=== PATIENT | male | born 1945 | race African-American/Black ===

== ENCOUNTER 2019-08-23 13:32 | Inpatient (IN) | payer MEDICARE, SELFPAY ==
[2019-08-23] VITALS (8 sets, daily range): BP systolic 105–126; BP diastolic 65–78; PULSE 81–107; RESP 20; TEMP 36.6; O2SAT 94–100
--- NOTE | ~2019-08-23 | XR_ITS ---
MODIFIED ESOPHAGRAM HISTORY: Dysphagia. TECHNIQUE: Modified barium esophagram was performed on 08/26/2019. I administered fluoroscopy and perf ormed the exam with speech pathologist. Patient was seated for lateral fluoroscopic imaging for lashell stion of thin liquids, pudding, solids and quantified amounts, followed by thin liquids in uncontroll ed amounts. This was recorded on tape. A single fluoroscopic spot image was also recorded. The DAP fo r this procedure was 4.119 Gycm2. The amount of fluoroscopy time used during this procedure was 2.8 m inutes. FINDINGS: Oral stage: Premature spill into the pharynx. Pharyngeal stage: There was a residue. No laryngeal penetration or aspiration. Cervical/esophageal stage: Adequate function. IMPRESSION: Oropharyngeal dysphagia without laryngeal penetration or aspiration. Please correlate [facility] speech pathologist findings and specific feeding recommendations. Reviewed, dictated and finalized at location A. IMPRESSION: Oropharyngeal dysphagia without laryngeal penetration or aspiration . Please correlate with speech pathologist findings and specific feeding recom mendations.
--- NOTE | ~2019-08-23 | XR_ITS ---
EXAMINATION: XR abdomen obstructive series DATE: 08/25/2019 05:49 INDICATION: Partial small bowel obstruction versus ileus TECHNIQUE: Frontal supine and upright views of the abdomen were obtained. COMPARISON: None. FINDINGS: Likely ventriculoperitoneal shunt which projects over the right hemithorax extending into the right a bdomen with distal stent coiled in the pelvis. Several surgical clips in the deep pelvis likely relat ed to prior prostatectomy. Additional metallic shrapnel in the right hemipelvis. [id number] amount of gas and stool scattered throughout the colon. There is also a small amoun t of gas scattered throughout normal caliber small bowel. No dilated bowel to suggest obstruction. No free intraperitoneal gas. Visualized lung bases are clear. Heart size is normal. IMPRESSION: 1. No free intraperitoneal gas or dilated gas-filled loops of bowel to suggest obstruction. Reviewed, dictated and finalized at location A.
--- NOTE | ~2019-08-23 | XR_ITS ---
EXAMINATION: XR abdomen obstructive series DATE: 08/24/2019 05:35 INDICATION: Small bowel obstruction versus ileus TECHNIQUE: Frontal supine and upright views of the abdomen were obtained. COMPARISON: 08/23/2019 FINDINGS: There is some gas scattered throughout portions of the colon and several nondilated loops of small christa wel. Likely ventriculoperitoneal shunt with distal tip coiled in the pelvis. These of metallic shrap thuy the right hemipelvis. There is residual excreted contrast in the bladder and along the urethra. P ostoperative change of prior prostatectomy. Moderate degenerative skeletal changes. Lung bases are cl ear. IMPRESSION: 1. No dilated gas-filled loops of bowel to suggest obstruction. Reviewed, dictated and finalized at location A.
--- NOTE | ~2019-08-23 | XR_ITS ---
EXAMINATION: XR chest 1V portable INDICATION: Cough TECHNIQUE: Portable AP chest at 1657 hours COMPARISON: 10/21/2018 FINDINGS: The lungs are free of acute opacities. There is no pleural effusion or pneumothorax. The ca rdiomediastinal silhouette is normal. Ventriculoperitoneal shunt catheter tubing courses over the rig ht hemithorax. IMPRESSION: 1. No acute cardiopulmonary abnormality. Reviewed, dictated and finalized at location A.
--- NOTE | ~2019-08-23 | CT_ITS ---
EXAMINATION: CT brain wo con DATE: 08/23/2019 15:06 INDICATION: Decreased mental status. Normal pressure hydrocephalus. TECHNIQUE: Computed tomography (CT) of the head was performed without intravenous contrast. Sagittal and coronal reconstructions were performed. The mA was adjusted according to patient size. Iterative reconstruction technique was employed. The dose-length product was 605.33 mGy-cm. COMPARISON: head CT dated 07/21/2016 FINDINGS: Right-sided ventricular drain catheter with proximal tip at the anterior horn of the right lateral ve ntricle and extending posteriorly through a right parietal borehole. There are likely symmetric bilat eral subdural fluid collections with slightly greater than CSF attenuation which extend over both the left and right cerebral hemispheres which are new since the prior study and which measure up to 7 mm in maximal thickness on both the left and right. No acute intracranial hemorrhage or acute infarctio n. There is symmetric mild ventriculomegaly consistent with given history of normal pressure hydrocep halus which is decreased since the prior study. Moderate baseline cerebral volume loss with diffuse i ncreased prominence of the sulci. No mass/mass effect. The mastoid air cells and paranasal sinuses ar e clear. The right mastoid is hypopneumatized. Changes of bilateral intraocular lens replacement. IMPRESSION: 1. 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 No evident higher attenuation acute intracranial hemorrhage. 2. Symmetric enlargement of the ventricles consistent with provided history of normal pressure hydroc ephalus. Ventricular drain in the right lateral ventricle appears unchanged although the ventricles a ppear slightly decreased in size since the prior study which is of uncertain significance. Reviewed, dictated and finalized at location A. IMPRESSION: 1. Relatively symmetric small bilateral subdural fluid collections only minimal ly higher in attenuation than CSF consistent with likely chronic subdural hygro mas which are new since the prior study. No evident higher attenuation acute in tracranial hemorrhage. 2. Symmetric enlargement of the ventricles consistent with provided history of normal pressure hydrocephalus. Ventricular drain in the right lateral ventricle appears unchanged although the ventricles appear slightly decreased in size si nce the prior study which is of uncertain significance.
--- NOTE | ~2019-08-23 | CT_ITS ---
EXAMINATION: CT abdomen pelvis w con DATE: 08/23/2019 15:07 INDICATION: Abdominal pain. Nausea and vomiting. TECHNIQUE: Computed tomography (CT) of the abdomen and pelvis was performed with 100 mL Omnipaque 350 intravenous contrast. Automated exposure control and iterative reconstruction technique were employe d. The dose-length product was 905.72 mGy-cm. COMPARISON: CT abdomen and pelvis 03/28/2019, 04/27/2013 FINDINGS: The visualized portions of the lung bases demonstrate motion artifact and mild atelectasis. No pleural effusion. The heart size is normal. There are coronary artery calcifications. No pericard ial effusion. The liver and gallbladder are normal. There is a 7 mm cyst in the spleen. The pancreas and right adrenal gland are normal. There is a chronic 1.8 cm mass in left adrenal gland that demonst rated low-attenuation on a prior CT, consistent with an adenoma. There is cortical thinning of the ki dneys. There are cysts in the kidneys measuring up to 15 mm on the right. The appendix is normal. The re is a ventriculoperitoneal shunt with tip in the pelvis. There are mildly dilated loops of small christa wel in left abdomen with mesenteric edema. There is a small volume of pelvic ascites. There are no pa thologically enlarged lymph nodes. There is bilateral gynecomastia. There is moderate lumbar spondylo sis and mild thoracic spondylosis. IMPRESSION: 1. Mildly dilated small bowel in left abdomen without focal transition point, which may be adynamic i leus or partial small bowel obstruction. 2. Small volume of ascites. Reviewed, dictated and finalized at location E. IMPRESSION: 1. Mildly dilated small bowel in left abdomen without focal transition point, w hich may be adynamic ileus or partial small bowel obstruction. 2. Small volume of ascites.
--- NOTE | 2019-08-23 13:37 | ED.NAVMDI ---
HPI - Nausea/Vomiting/Diarrhea General Chief complaint: Nausea/Vomiting/Diarrhea Stated complaint: n/v Time Seen by Provider: 08/23/19 13:35 Source: patient and family Mode of arrival: ambulatory Limitations: no limitations History of Present Illness HPI Narrative: Patient is a 74-year-old male who presents for evaluation of nausea and vomiting. History is all obtained from the patient's who cares for him. Patient has a history of NPH, meningitis, now with chronic encephalopathy and is nonverbal at baseline. Patient's states that he has had some vomiting today, nonbilious, nonbloody. She reports that he has been acting like he is experiencing some pain, although she is unsure if it is coming from his abdomen or not. No fever. Patient also has had a dry cough. Patient follows at [facility] for his [employer] shunt, he sees Dr. Prajapati at that facility. No diarrhea per patient's . She states that he he seems slightly less active than normal. Related Data Home Medications Medication Instructions Recorded Confirmed Adults Multivitamin 1 tablet PO DAILY 03/28/19 04/07/19 Systane Gel 1 drp OPHTHALMIC (EYE) DAILY 03/28/19 04/07/19 aspirin 325 mg PO HS 03/28/19 04/07/19 ipratropium-albuterol 3 ml INHALATION Q6H PRN 03/28/19 04/07/19 modafinil [Provigil] 100 mg PO QAM 03/28/19 04/07/19 polyethylene glycol 3350 [Miralax] 17 g PO HS 03/29/19 04/07/19 Allergies Allergy/AdvReac Type Severity Reaction Status Date / Time ANMOL Inhibitors Allergy Unknown Unknown Verified 08/23/19 13:46 famotidine Allergy Unknown Unknown Verified 08/23/19 13:46 guaifenesin Allergy Unknown unknown Verified 08/23/19 13:46 pantoprazole Allergy Unknown unknown Verified 08/23/19 13:46 Penicillins Allergy Unknown unknown Verified 08/23/19 13:46 promethazine Allergy Unknown Unknown Verified 08/23/19 13:46 ropinirole Allergy Unknown Unknown Verified 08/23/19 13:46 Review of Systems Review of Systems: Narrative: Per , cONSTITUTIONAL: Denies fever CARDIOVASCULAR: Denies chest pain RESPIRATORY: Denies cough or dyspnea. GASTROINTESTINAL: Denies abdominal pain reports vomiting SKIN: Denies rash MUSCULOSKELETAL: Chronic muscle contracture [facility] Past Medical History Medical History Chronic cough Chronic pain Complication of lumbar puncture Hemorrhoid had a procedure 25 years ago to fix Meningitis NPH (normal pressure hydrocephalus) Primary osteoarthritis of knees, bilateral Prostate cancer Surgical History Surgical History H/O prostatectomy History of prostate surgery 1993 Family History Family History Father Malignant neoplasm of prostate Patient's father is Mother Family history of diabetes mellitus in first degree relative Social History Social History Smoking status: Former smoker Smoking end date: 03/28/00 Alcohol intake: current Substance use: never Additional living arrangements comments: Gender identity (if verbalized by the patient): Male Spiritual care concerns: No Agree to blood products: No Exam Narrative: Exam Narrative: GENERAL: Awake, nonconversant, baseline HEAD: Normocephalic, atraumatic. EYES: PERRLA and EOMI. ENT: Nares clear, no rhinorrhea or epistaxis. Mucous membranes moist. Emesis present on shirt. NECK: Supple. CHEST: No respiratory distress, breathing even and non labored HEART: Regular rate, sinus rhythm ABDOMEN:Mild distension, grimace with palpation, pt moans likely indicative of pain EXTREMITIES: Normal range of motion. No edema. SKIN: Warm, dry, no rash. NEURO: Contractures of upper and lower extremities. Right upper extremity held in flexion. Chronic. Course Vital Signs Vital signs: Vital Signs Temperature 36.6 C
[2019-08-23 13:58] LABS: Basophils Percent Auto 0.2 % (0.2-1.2); Hematocrit 49.1 % (42.0-52.0); Hemoglobin 16.4 g/dL (14.0-18.0); Immature Granulocyte Absolute 0.06 K/mm3 (0.00-0.031); Immature Granulocyte Percent A 0.6 % (0-0.5); Lymphocytes Absolute Auto 0.62 K/mm3 (0.9-3.2); Lymphocytes Percent Auto 5.8 % (18.3-44.2); Mean Corpuscular HGB Conc 33.4 g/dl (32-36); Mean Corpuscular Hemoglobin 32.3 pg (26-34); Mean Corpuscular Volume 96.8 fl (80-100); Mean Platelet Volume 9.8 fl (7.4-10.4); Monocytes Absolute Auto 0.8 K/mm3 (0.1-0.6); Monocytes Percent Auto 7.2 % (2.6-8.5); Neutrophils Absolute Auto 9.2 K/mm3 (1.3-6.7); Neutrophils Percent Auto 86.2 % (45.5-73.1); Platelet Count Result 157 k/mm3 (150-375); Red Blood Count 5.07 M/mm3 (4.6-6.20); Red Cell Distribution Width 13.9 % (11.5-14.5); White Blood Count 10.7 K/mm3 (4.5-10.0)
[2019-08-23 14:00] LABS: Glucose Point of Care 120 (65-105)
[2019-08-23 14:19] LABS: Albumin Level 4.1 g/dL (3.5-5.1); Alkaline Phosphatase 64 U/L (38-126); Aspartate Amino Transferase 25 U/L (17-59); Bilirubin,Total 0.5 mg/dL (0.2-1.3); Blood Urea Nitrogen 18 mg/dL (9-20); Calcium 9.2 mg/dL (8.4-10.2); Carbon Dioxide 32 mmol/L (22-30); Chloride 98 mmol/L (98-107); Estimated Glomerular Filt Rate > 60; Glucose 116 mg/dL (75-110); Lactic Acid Reflex 4.7 mmol/L (0.7-2.1); Lipase 64 U/L (23-300); Potassium 4.6 mmol/L (3.4-5.0); Sodium 141 mmol/L (137-145)
[2019-08-23] MEDS: ONDANSETRON INJ 4 MG/2 ML VIAL IV PUSH (14:19)
[2019-08-23] MEDS: SODIUM CHLORIDE 0.9% IV 1,000 ML 999 ML IV CONT ×2 (14:20→15:27)
[2019-08-23 14:26] LABS: Alanine Aminotransferase 20 U/L (4-50)
[2019-08-23 16:32] LABS: Valproic Acid 71.4 ug/mL (50-120)
--- NOTE | 2019-08-23 16:48 | PC.NURSE ---
ERP ASKING ABOUT URINE SAMPLE AT THIS TIME, I WENT AND ASSESSED PT BRYANT CATHETER, URINARY BAG IS EMPTY DESPITE 2L NS. ERP KIM INFORMED. NO NEW ORDERS. FAMILY ASKING ABOUT PAIN MEDICATION. I HAVE ADMINISTERED 4MG MORPHINE PER ERP ORDER AT THIS TIME.
[2019-08-23] MEDS: MORPHINE SULFATE 4 MG/ML INJ IV PUSH (16:50)
[2019-08-23 16:56] LABS: Reflex Lactic Acid Yes or No Add Lactic
[2019-08-23 17:31] LABS: Lactic Acid 2.4 mmol/L (0.7-2.1)
--- NOTE | 2019-08-23 17:49 | PC.NURSE ---
asked pt for urine sample multiple times the Pt has not gave us a sample yet RN notified.
[2019-08-23] MEDS: SODIUM CHLORIDE 0.9% IV 1,000 ML 150 ML IV CONT (18:00)
[2019-08-23] MEDS: metroNIDAZOLE 500 MG/ISO 100ML 500 MG/100 ML BAG 100 MG IVPB (18:00)
--- NOTE | 2019-08-23 18:21 | PC.NURSE ---
NG ATTEMPTED BY MYSELF AND ANDRE FELDER, UNSUCCESSFUL IN PLACEMENT. ERP BERTELS AWARE OR SITUATION, STATES NOT TO ATTEMPT AGAIN.
--- NOTE | 2019-08-23 21:17 | PM.IMHP ---
H&P: HPI History of Present Illness Chief complaint: Nausea and vomiting Narrative: Date and time of patient contact: 08/24/2019 at 12: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 Source of information is ER records and past medical records. The patient is nonverbal at baseline due to his chronic encephalopathy. That he had nonbilious nonbloody vomiting that started on the . His felt the patient was experiencing some pain. Patient had been afebrile. He has been having a dry cough. His thought that he was less interactive than normal. in the ER the patient was noted to have some emesis and was having difficulty clearing the emesis. He required suctioning. The patient's did not want the patient to be intubated if he was unable to clear his secretions. ER physician was concerned that the patient may have some aspiration pneumonia given his recent emesis the patient was given broad-spectrum antibiotics in the ER. ER staff had tried to place an NG without success. Reportedly the surgeon stated that it was okay to leave the NG tube out and that repeat KUB done in the morning. At the time of my evaluation the patient did grimace when I palpated his abdomen but otherwise demonstrated no evidence of distress. Review of Systems Review of Systems: ROS unobtainable: Yes unobtainable due to medical condition PMFSH Past Medical History Medical History (Updated 08/23/19 @ 21:34 by Rubi Bales DO) Abnormal colonoscopy Sigmoid colitis and internal hemorrhoids on colonoscopy March [address] 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 with flexion contractures, immobility and nonverbal state Meningitis Normal pressure hydrocephalus Parkinsons disease With atypical features Primary osteoarthritis of knees, bilateral Prostate cancer Seizure disorder Vitamin D deficiency Surgical History Surgical History (Updated 08/23/19 @ 21:29 by Rubi Bales DO) History of bilateral cataract extraction 2014 History of hemorrhoidectomy 1977 History of prostatectomy 1992 History of thyroid surgery Resection of a thyroid nodule 2011 Status post ventriculoperitoneal shunt April 2015 Family History Family History (Updated 08/23/19 @ 21:30 by Rubi Bales DO) Father Malignant neoplasm of prostate Mother Diabetes mellitus Sibling Hypertension Cancer Social History Social History (Updated 08/24/19 @ 05:53 by Rubi Bales DO) Social History: Primary care physician: Dr. Homer Dowell Code status: DNI Smoking status: Former smoker Smoking end date: 03/28/00 Alcohol intake: never Substance use: never Living arrangements: with family Additional living arrangements comments: The patient lives in [place] with his who is his primary caregiver. Gender identity (if verbalized by the patient): Male Spiritual care concerns: No Agree to blood products: No Meds Home Medications and Allergies Home Medications Medication Instructions Recorded Confirmed Type levothyroxine 88 mcg tablet 88 mcg PO DAILY #90 tablet 03/11/19 08/23/19 Rx Adults Multivitamin 1 tablet PO DAILY 03/28/19 08/23/19 History Systane Gel 1 drp OPHTHALMIC (EYE) BID 03/28/19 08/23/19 History ipratropium-albuterol 3 ml INHALATION Q6H PRN 03/28/19 08/23/19 History modafinil [Provigil] 100 mg PO QAM 03/28/19 08/23/19 History polyethylene glycol 3350 [Miralax] 17 g PO QPM 03/29/19 08/23/19 History baclofen 20 mg tablet 20 mg PO TID #270 tablet
--- NOTE | 2019-08-23 22:50 | ADMGEN ---
This patient, Lane Helms, was admitted to [facility] Surg Room 315-02. Patient/family oriented to hospital policies and general routines including ID bracelet, bed and alarms, visiting hours, pain management, procedures, bathroom and other care routines, personal items, smoking policy, room service/diet, and visiting hours. Valuables list has been completed. Information on how to activate the Rapid Response Team has been discussed. Patient/Family are encouraged to report perceived risks to care and to ask questions if they do not understand what they are told or what they should do.
[2019-08-24] VITALS (9 sets, daily range): BP systolic 113–130; BP diastolic 56–72; PULSE 73–86; RESP 16–20; TEMP 36.2–37.1; O2SAT 93–98
[2019-08-24] MEDS: SODIUM CHLORIDE 0.9% IV 1,000 ML 125 ML IV CONT ×3 (01:04→18:18)
[2019-08-24 06:12] LABS: Hematocrit 37.9 % (42.0-52.0); Hemoglobin 12.4 g/dL (14.0-18.0); Mean Corpuscular HGB Conc 32.7 g/dl (32-36); Mean Corpuscular Hemoglobin 31.8 pg (26-34); Mean Corpuscular Volume 97.2 fl (80-100); Mean Platelet Volume 9.7 fl (7.4-10.4); Platelet Count Result 133 k/mm3 (150-375); White Blood Count 7.4 K/mm3 (4.5-10.0)
[2019-08-24 06:21] LABS: Lactic Acid 0.7 mmol/L (0.7-2.1)
[2019-08-24 06:39] LABS: Blood Urea Nitrogen 14 mg/dL (9-20); Calcium 7.9 mg/dL (8.4-10.2); Carbon Dioxide 29 mmol/L (22-30); Chloride 106 mmol/L (98-107); Estimated Glomerular Filt Rate > 60; Glucose 93 mg/dL (75-110); Magnesium 2.1 mg/dL (1.6-2.3); Potassium 3.8 mmol/L (3.4-5.0); Sodium 139 mmol/L (137-145)
[2019-08-24] MEDS: ENOXAPARIN 40 MG/0.4 ML SYRINGE SUB-Q (08:52)
--- NOTE | 2019-08-24 12:34 | PM.IMPN ---
Progress Note: A&P Assessment and Plan (1) Partial small bowel obstruction: Code(s): K56.600 - Partial intestinal obstruction, unspecified as to cause Status: Acute Assessment and Plan: CT scan on admission with mildly dilated small bowel in left abdomen without focal transition point, which may be adynamic ileus or partial small bowel obstruction and small volume of ascites. KUB this morning with no dilated loops of bowel. General surgery consulted and appreciate input. Unable to place NG in the emergency room. Will remain NPO for now. Continue IV fluids. Will continue to monitor. (2) Lactic acidosis: Code(s): E87.2 - Acidosis Status: Acute Assessment and Plan: Probably result of dehydration as lactic acidosis has improved with IV fluid rehydration. Received IV vancomycin and metronidazole in the emergency room. IV vancomycin is still in place with blood cultures pending. Anticipate discontinuing vancomycin by tomorrow no change in status. (3) Vomiting: Qualifiers: Nausea presence: with nausea Vomiting Intractability: non-intractable Vomiting type: unspecified Qualified Code(s): R11.2 - Nausea with vomiting, unspecified Code(s): R11.10 - Vomiting, unspecified Status: Acute Assessment and Plan: No further vomiting. Remains NPO. IV Zofran available if needed. Will monitor. (4) Encephalopathy chronic: Code(s): G93.49 - Other encephalopathy Status: Acute Assessment and Plan: Known chronic encephalopathy. Interaction limited as a result. Will continue to monitor. (5) Hypothyroid: Qualifiers: Hypothyroidism type: unspecified Qualified Code(s): E03.9 - Hypothyroidism, unspecified Code(s): E03.9 - Hypothyroidism, unspecified Status: Acute Assessment and Plan: Will give levothyroxine IV while NPO. (6) Parkinsons disease: Code(s): G20 - Parkinson's disease Status: Acute Assessment and Plan: Home carbidopa levodopa on hold. Resume when able. (7) Seizure disorder: Code(s): G40.909 - Epilepsy, unspecified, not intractable, without status epilepticus Status: Acute Assessment and Plan: Oral divalproex on hold. With imaging already showing improvement regarding bowels, will hold off on starting IV but will need to do so if prolonged NPO status. (8) DVT prophylaxis: Code(s): Z29.9 - Encounter for prophylactic measures, unspecified Status: Acute Assessment and Plan: Lovenox. Time Spent With Patient Time with patient: 15 - 25 minutes Subjective Date/time seen: 08/24/19 12:34 Interval history: Date of Service: 08/24/2019. Admitted with partial small bowel obstructions. Patient able to say a few words but generally nonverbal at baseline. Awakens for me. Indicates some abdominal pain. Unable to answer other questions. Review of Systems Review of Systems: Narrative: Limited due to medical/mental condition Constitutional: Constitutional: Denies chills and Denies fever(s) Gastrointestinal: Gastrointestinal: Reports abdominal pain Exam Narrative: Exam Narrative: Easily awakened Const: General: no acute distress HENMT: Mouth: Yes moist mucous membranes Neck: Neck: supple Lymphatic: lymphadenopathy not noted Resp: Auscultation: no rales, no wheezes and diminished lung sounds Cardio: Rate: regular rate Rhythm: regular rhythm GI: Inspection: non-distended GI Palp: Yes Soft to palpation and No Tenderness to palpation present (GI) Auscultation: normal bowel sounds Skin: General skin exam: normal color Neuro: Other: awakens; open eyes; says a few words Extrem: General: pedal edema Psych: Other: not agitated Objective Data Vital Signs Vital Signs: Vital Signs - 24 hr 08/23/19 13:35 08/23/19 15:29 08/23/19 16:00 Temperature 97.9 F Pulse Rate 107 H 92 92 Respiratory Rate 20 20 20 Blood Pressure 126/78 113/68 122/7
[2019-08-24] MEDS: BISACODYL 10 MG SUPPOSITORY RECTAL (13:04)
--- NOTE | 2019-08-24 15:09 | PM.CNGS ---
Assessment and Plan Assessment and plan (1) Partial small bowel obstruction: Code(s): K56.600 - Partial intestinal obstruction, unspecified as to cause Status: Acute Assessment and Plan: CT reviewed. There is evidence of small bowel dilation with no focal transition point, concerning for partial small bowel obstruction versus ileus. Etiology unclear. Due to the patient's neurological condition and being non-verbal, it is difficult to obtain a full history. He does have a small scar on his abdomen suggesting previous abdominal surgery, but unsure what surgery this scar is from. Will try to obtain more detailed history from his . Abdominal x-ray this morning shows no small bowel dilation and the patient has not had recent episodes of vomiting today. His abdominal exam is benign. Will continue with conservative management at this time, including bowel rest and IV fluids, and also give the patient a Dulcolax suppository today. We will also hold off on an NG tube for now, unless he begins to have more vomiting. Will order abdominal films for tomorrow morning, and if this looks good, then we can consider allowing the patient to start clear liquids. Thank you for allowing me to see the patient in consultation and we will continue to follow along with you. (2) Lactic acidosis: Code(s): E87.2 - Acidosis Status: Acute Assessment and Plan: Likely related to his vomiting with possible aspiration. Repeat lactic now 0.7 and patient afebrile with normal WBC. Currently on broad-spectrum IV antibiotics. Management per Hospitalist. (3) Vomiting: Qualifiers: Nausea presence: with nausea Vomiting Intractability: non-intractable Vomiting type: unspecified Qualified Code(s): R11.2 - Nausea with vomiting, unspecified Code(s): R11.10 - Vomiting, unspecified Status: Acute (4) Encephalopathy chronic: Code(s): G93.49 - Other encephalopathy Status: Acute Additional Plan Discussed the patient's case and formulated the plan of care with Dr. Guzman. History of Present Illness Consult details Consult date: 08/24/19 Reason for consult: other (Partial small bowel obstruction versus ileus) Requesting physician: Jojo Dyson MD Narrative: This is a 74 year old male who is nonverbal due to a history of meningitis causing chronic encephalopathy and normal pressure hydrocephalus status post [employer] shunt in 2016. Because of this, his history is obtained by the electronic medical record. The patient lives at home with his , who is also his caregiver. He was reportedly brought to the emergency department due to nausea and vomiting that started yesterday. In the ER, the patient apparently had vomiting with difficulty clearing the emesis and concern for aspiration, and he required suctioning. The ER physician started the patient on broad-spectrum IV antibiotics due to the concern of aspiration pneumonia. CT scan of the abdomen and pelvis showed mildly dilated small bowel in left abdomen without focal transition point, which may be adynamic ileus or partial small bowel obstruction. Also a small volume of ascites. Labs revealed an elevated lactic acid of 4.7, which is now down to 0.7, and a mildly elevated white blood cell count of 10,700, which is now down to 7,000. Other labs were unremarkable. Urinalysis negative for UTI. Chest x-ray obtained and showed no acute cardiopulmonary abnormalities. The patient was admitted to the Hospitalist service with partial small bowel obstruction versus ileus and elevated lactate. Our service was consulted from the ER physician for the possible partial small bowel obstruction. The patient is now being seen on the medical floor. The nursing staff was apparently unable to place an NG tube initially, and the patient has not had any reported episodes of vomiting since. He has been made NPO and an abdominal x-ray was performed this morning that showed normal bowel gas pattern w
[2019-08-25] VITALS (10 sets, daily range): BP systolic 143–150; BP diastolic 71–96; PULSE 85–100; RESP 18–20; TEMP 36.4–37.4; O2SAT 96–100
[2019-08-25] MEDS: SODIUM CHLORIDE 0.9% IV 1,000 ML 125 ML IV CONT ×3 (04:01→22:30)
[2019-08-25] MEDS: LEVOTHYROXINE SODIUM INJ 100 MCG/5 ML VIAL 44 MCG IV PUSH (05:52)
[2019-08-25 06:18] LABS: Immature Platelet Fraction Pct 0.9 % (0.9-11.2); Mean Corpuscular HGB Conc 34.1 g/dl (32-36); Mean Corpuscular Hemoglobin 32.6 pg (26-34); Mean Corpuscular Volume 95.6 fl (80-100); Mean Platelet Volume 9.3 fl (7.4-10.4); Platelet Count Result 142 k/mm3 (150-375); Red Blood Count 4.29 M/mm3 (4.6-6.20); Red Cell Distribution Width 13.3 % (11.5-14.5); White Blood Count 6.4 K/mm3 (4.5-10.0)
[2019-08-25 06:33] LABS: Blood Urea Nitrogen 9 mg/dL (9-20); Calcium 8.1 mg/dL (8.4-10.2); Carbon Dioxide 26 mmol/L (22-30); Chloride 104 mmol/L (98-107); Estimated Glomerular Filt Rate > 60; Glucose 91 mg/dL (75-110); Potassium 3.5 mmol/L (3.4-5.0); Sodium 138 mmol/L (137-145)
[2019-08-25] MEDS: ENOXAPARIN 40 MG/0.4 ML SYRINGE SUB-Q (09:37)
--- NOTE | 2019-08-25 09:39 | PM.PNGS ---
Progress Note: A&P Assessment and Plan (1) Partial small bowel obstruction: Code(s): K56.600 - Partial intestinal obstruction, unspecified as to cause Status: Acute Assessment and Plan: Partial SBO versus ileus on CT scan. I spoke with the patient's today. She believes that the only abdominal incisions he would have had from previous surgeries was from his [employer] shunt. She states his prostate surgery was 30 years ago and it sounds like he had a TURP. She does report that the patient is able to swallow liquids and eat well without using any thickening. She uses precautions to sit him upright, no straws, and slow intake to avoid aspiration. Patient clinically improving. KUB this morning showed normal bowel gas pattern with no dilated small bowel loops. Abdominal soft, non-distended, and appears to be non-tender. He had a documented bowel movement yesterday evening. Will allow him to try clear liquids today and start him on Miralax daily. It appears there was no urinalysis performed in the ER, so I will get a urinalysis today to rule out UTI for possible etiology of an ileus. Patient's had concerns about his urine smelling foul recently. (2) Lactic acidosis: Code(s): E87.2 - Acidosis Status: Acute Assessment and Plan: Management per Hospitalist. IV vancomycin still in place and awaiting blood cultures - NGTD. (3) Vomiting: Qualifiers: Nausea presence: with nausea Vomiting Intractability: non-intractable Vomiting type: unspecified Qualified Code(s): R11.2 - Nausea with vomiting, unspecified Code(s): R11.10 - Vomiting, unspecified Status: Acute (4) Encephalopathy chronic: Code(s): G93.49 - Other encephalopathy Status: Acute Additional Plan Discussed the patient's case and plan of care with Dr. Guzman. Subjective Subjective Date/Time Seen: 08/25/19 09:39 Interval history: Nonverbal. Review of Systems Review of Systems: ROS unobtainable: Yes unobtainable due to mental status Exam Const: General: comfortable and no acute distress Orientation/consciousness: Other orientation findings (ROB, nonverbal but alert) GI: Inspection: normal to inspection, non-distended and scar (small periumbilical scar just inferior to umbilicus) GI Palp: Yes Soft to palpation, No Guarding due to palpation present (GI) and Yes Other GI palpation findings present (No grimacing or signs of tenderness on palpation) Auscultation: normal bowel sounds Skin: General skin exam: normal color Neuro: Gait exam (Neuro): Unable to assess gait Extrem: General: normal to inspection and no edema Psych: Other: ROB due to neurological condition. Objective Data Vital Signs Vital Signs: Vital Signs - 24 hr 08/24/19 12:00 08/24/19 14:00 08/24/19 16:00 Temperature 37.1 C Pulse Rate 73 80 81 Respiratory Rate 20 Blood Pressure 130/56 L Pulse Oximetry 98 08/24/19 22:00 08/25/19 00:00 08/25/19 04:00 Temperature 36.4 C L Pulse Rate 84 85 99 Respiratory Rate 18 Blood Pressure 126/72 Pulse Oximetry 97 08/25/19 06:00 Temperature 36.4 C Pulse Rate 97 Respiratory Rate 20 Blood Pressure 150/89 H Pulse Oximetry 96 Intake/Output Intake/Output: Intake & Output 08/22/19 08/23/19 08/24/19 08/25/19 23:59 23:59 23:59 23:59 Intake Total 2150 2162 1250 Output Total 800 800 Balance 2150 1362 450 Meds/Results Medications: Active Medications Generic Name Dose Route Start Last Admin Trade Name Freq PRN Reason Stop Dose Admin Albuterol 2.5 mg 08/24/19 06:09 Albuterol Sulf Neb 2.5mg/0.5ml INHALATION Q6H PRN SHORTNESS OF BREATH Artificial Tears 1 drop 08/24/19 09:00 08/24/19 17:19 Artificial Tears EACH EYE 1 drop BID THA Administration Enoxaparin Sodium 40 mg 08/24/19 09:00 08/24/19 08:52 Lovenox SUB-Q 40 mg DAILY THA Administration Sodium Chloride 1,000 mls @ 125 mls/hr 08/23/19 17:45 08/25/19 04:01
[2019-08-25 12:11] LABS: Add Urine Microscopic? YES; Appearance Urine Clear (Clear); Bacteria Urine Trace /hpf; Bilirubin Urine Negative (Negative); Blood Urine 2+ (Negative); Color Urine Colorless (Yellow); Glucose Urine UA Negative (Negative); Ketones Urine Trace mg/dL (Negative); Leukocyte Esterase Ur Negative LEU/UL (Negative); Mucus Urine Rare /lpf; Nitrate Urine Negative (Negative); Protein Urine Negative (Negative); RBC Urine 0-2 /hpf (0-2); Specific Grav Ur 1.008 (1.001-1.035); Urobilinogen Urine Negative mg/dL (<2.0); WBC Urine 0-3 /hpf
[2019-08-25] MEDS: polyethylene glycoL 3350 17 GM POWD.PACK PO (12:22)
--- NOTE | 2019-08-25 14:34 | PM.IMPN ---
Progress Note: A&P Assessment and Plan (1) Partial small bowel obstruction: Code(s): K56.600 - Partial intestinal obstruction, unspecified as to cause Status: Acute Assessment and Plan: General surgery consulted and appreciate input. Unable to place NG tube in emergency room and initially NPO. CT scan on admission with mildly dilated small bowel in left abdomen without focal transition point, which may be adynamic ileus or partial small bowel obstruction and small volume of ascites. KUB on 08/24/2019 with no dilated loops of bowel. No free intraperitoneal gas or dilated gas-filled loops of bowel to suggest obstruction. Has now been started on clear liquids. IV fluids remain in place. Will continue to monitor. (2) Lactic acidosis: Code(s): E87.2 - Acidosis Status: Acute Assessment and Plan: Probably result of dehydration as lactic acidosis improved with IV fluid rehydration. Received IV vancomycin and metronidazole in the emergency room. IV vancomycin continued with blood cultures in process. Blood cultures are now negative times greater than 48 hours. Urinalysis obtained today and not suspicious. Will discontinue IV vancomycin. Will continue to monitor clinically. (3) Vomiting: Qualifiers: Nausea presence: with nausea Vomiting Intractability: non-intractable Vomiting type: unspecified Qualified Code(s): R11.2 - Nausea with vomiting, unspecified Code(s): R11.10 - Vomiting, unspecified Status: Acute Assessment and Plan: No further vomiting. Now on clear liquids. IV Zofran remains available if needed. Per surgery request, will try to obtain MBS but may be difficult based on baseline mental status. Will continue to monitor. (4) Encephalopathy chronic: Code(s): G93.49 - Other encephalopathy Status: Acute Assessment and Plan: Known chronic encephalopathy. Interaction limited as a result. Will continue to monitor. (5) Hypothyroid: Qualifiers: Hypothyroidism type: unspecified Qualified Code(s): E03.9 - Hypothyroidism, unspecified Code(s): E03.9 - Hypothyroidism, unspecified Status: Acute Assessment and Plan: Will continue IV levothyroxine with plan to transition to oral formulation once sure patient is tolerating oral intake. (6) Parkinsons disease: Code(s): G20 - Parkinson's disease Status: Acute Assessment and Plan: Home carbidopa levodopa on hold. Hopefully will resume tomorrow is tolerating oral intake and no problem seen on MBS. (7) Seizure disorder: Code(s): G40.909 - Epilepsy, unspecified, not intractable, without status epilepticus Status: Acute Assessment and Plan: Oral divalproex remains on hold. As long as continues to do well with oral intake today, may be able to resume home medication tomorrow. (8) DVT prophylaxis: Code(s): Z29.9 - Encounter for prophylactic measures, unspecified Status: Acute Assessment and Plan: Lovenox. Time Spent With Patient Time with patient: 15 - 25 minutes Subjective Date/time seen: 08/25/19 14:34 Interval history: Date of Service: 08/25/2019. Admitted with partial small bowel obstruction. ROS limited by patient's baseline status. Patient is able to tell me he feels some abdominal pain. Unable to answer other questions. Review of Systems Review of Systems: Narrative: Limited due to mental status. Constitutional: Constitutional: Denies chills and Denies fever(s) Gastrointestinal: Gastrointestinal: Reports abdominal pain Exam Narrative: Exam Narrative: Easily awakened Const: General: no acute distress HENMT: Mouth: Yes moist mucous membranes Neck: Neck: supple Lymphatic: lymphadenopathy not noted Resp: Auscultation: no rales, no wheezes and diminished lung sounds Cardio: Rate: regular rate Rhythm: regular rhythm GI: Inspection: non-distended GI Palp: Yes Soft to palpati
[2019-08-26] VITALS (9 sets, daily range): BP systolic 154–187; BP diastolic 88–94; PULSE 96–103; RESP 16–20; TEMP 36.7; O2SAT 98–99; BMI 26.9
[2019-08-26 01:29] LABS: Vancomycin Trough 6.1 ug/mL (10.0-20.0)
[2019-08-26] MEDS: LEVOTHYROXINE SODIUM INJ 100 MCG/5 ML VIAL 44 MCG IV PUSH (06:10)
[2019-08-26] MEDS: SODIUM CHLORIDE 0.9% IV 1,000 ML 125 ML IV CONT ×2 (06:30→18:20)
[2019-08-26 06:32] LABS: Hematocrit 39.5 % (42.0-52.0); Hemoglobin 13.5 g/dL (14.0-18.0); Immature Platelet Fraction Pct 1.2 % (0.9-11.2); Mean Corpuscular HGB Conc 34.2 g/dl (32-36); Mean Corpuscular Hemoglobin 32.2 pg (26-34); Mean Corpuscular Volume 94.3 fl (80-100); Mean Platelet Volume 9.8 fl (7.4-10.4); Platelet Count Result 146 k/mm3 (150-375); Red Blood Count 4.19 M/mm3 (4.6-6.20); Red Cell Distribution Width 13.2 % (11.5-14.5); White Blood Count 5.9 K/mm3 (4.5-10.0)
[2019-08-26 06:48] LABS: Blood Urea Nitrogen 6 mg/dL (9-20); Calcium 8.2 mg/dL (8.4-10.2); Carbon Dioxide 29 mmol/L (22-30); Chloride 107 mmol/L (98-107); Estimated CRCL calculation 95 ml/min; Estimated Glomerular Filt Rate > 60; Glucose 104 mg/dL (75-110); Sodium 139 mmol/L (137-145)
[2019-08-26] MEDS: polyethylene glycoL 3350 17 GM POWD.PACK PO (08:35)
[2019-08-26] MEDS: ENOXAPARIN 40 MG/0.4 ML SYRINGE SUB-Q (08:35)
--- NOTE | 2019-08-26 12:29 | PM.PNGS ---
Progress Note: A&P Assessment and Plan (1) Partial small bowel obstruction: Code(s): K56.600 - Partial intestinal obstruction, unspecified as to cause Status: Acute Assessment and Plan: Partial SBO versus ileus on CT scan. Seems to be resolving. Abdominal exam benign today and patient had BM yesterday again. No further episodes of vomiting. UA negative for UTI. Modified Barium swallow test being performed today. Depending on the speech therapist recommendations, the patient could be advanced to a full liquid diet today and see how he does. Continue Miralax daily. (2) Lactic acidosis: Code(s): E87.2 - Acidosis Status: Acute Assessment and Plan: Resolved. Management per Hospitalist. No longer on IV abx. Blood cx NGTD. (3) Vomiting: Qualifiers: Nausea presence: with nausea Vomiting Intractability: non-intractable Vomiting type: unspecified Qualified Code(s): R11.2 - Nausea with vomiting, unspecified Code(s): R11.10 - Vomiting, unspecified Status: Acute Assessment and Plan: Resolved. (4) Encephalopathy chronic: Code(s): G93.49 - Other encephalopathy Status: Acute Additional Plan Discussed the patient's case and plan of care with Dr. Guzman. Subjective Subjective Date/Time Seen: 08/26/19 12:29 Patient reports: bowel movement (x 1 yesterday per EMR) Interval history: Patient non-verbal. Review of Systems Review of Systems: ROS unobtainable: Yes unobtainable due to mental status Exam Const: General: comfortable, no acute distress and alert Other: Nonverbal GI: Inspection: normal to inspection and non-distended GI Palp: Yes Soft to palpation, No Guarding due to palpation present (GI), No Rigid due to palpation and Yes Other GI palpation findings present (No signs of tenderness on palpation) Auscultation: normal bowel sounds Skin: General skin exam: normal color Psych: Other: ROB due to neurological condition. Objective Data Vital Signs Vital Signs: Vital Signs - 24 hr 08/25/19 14:00 08/25/19 16:00 08/25/19 16:48 Temperature 36.7 C Pulse Rate 93 97 97 Respiratory Rate 18 Blood Pressure 143/96 H Pulse Oximetry 100 08/25/19 20:00 08/25/19 22:00 05/22/20 00:00 Temperature 37.4 C Pulse Rate 100 97 103 H Respiratory Rate 20 Blood Pressure 143/71 H Pulse Oximetry 97 08/26/19 04:00 08/26/19 06:00 Temperature 36.7 C Pulse Rate 100 99 Respiratory Rate 20 Blood Pressure 155/88 H Pulse Oximetry 99 Intake/Output Intake/Output: Intake & Output 08/23/19 08/24/19 08/25/19 08/26/19 23:59 23:59 23:59 23:59 Intake Total 2150 2162 3610 1390 Output Total 800 3650 1400 Balance 2150 1362 -40 -10 Meds/Results Medications: Active Medications Generic Name Dose Route Start Last Admin Trade Name Freq PRN Reason Stop Dose Admin Albuterol 2.5 mg 08/24/19 06:09 Albuterol Sulf Neb 2.5mg/0.5ml INHALATION Q6H PRN SHORTNESS OF BREATH Artificial Tears 1 drop 08/24/19 09:00 08/26/19 08:35 Artificial Tears EACH EYE 1 drop BID THA Administration Enoxaparin Sodium 40 mg 08/24/19 09:00 08/26/19 08:35 Lovenox SUB-Q 40 mg DAILY THA Administration Sodium Chloride 1,000 mls @ 125 mls/hr 08/23/19 17:45 08/26/19 06:30 Normal Saline Iv IV CONT 125 mls/hr .Q8H THA Administration Ipratropium [place] 0.5 mg 08/24/19 06:09 Atrovent Neb INHALATION Q6H PRN SHORTNESS OF BREATH Levothyroxine Sodium 44 mcg 08/25/19 06:30 08/26/19 06:10 Synthroid Inj IV PUSH 44 mcg DAILY@0630 THA Administration Morphine Sulfate 2 mg 08/23/19 17:43 Morphine Sulfate Inj IV PUSH Q2H PRN Pain Rated 7-10 Ondansetron HCl 4 mg 08/23/19 17:43 Zofran Inj IV PUSH Q4H PRN Nausea Polyethylene Glycol 17 gm 08/25/19 09:55 08/26/19 08:35 Miralax PO 17 gm QAM THA Administration Radiology Results: ITS Impressions Head
--- NOTE | 2019-08-26 12:51 | PM.IMPN ---
Progress Note: A&P Assessment and Plan (1) Partial small bowel obstruction: Code(s): K56.600 - Partial intestinal obstruction, unspecified as to cause Status: Acute Assessment and Plan: General surgery consulted and appreciate input. Unable to place NG tube in emergency room and initially NPO. CT scan on admission with mildly dilated small bowel in left abdomen without focal transition point, which may be adynamic ileus or partial small bowel obstruction and small volume of ascites. KUB on 08/24/2019 with no dilated loops of bowel. Imaging on 08/25/2019 with no free intraperitoneal gas or dilated gas-filled loops of bowel to suggest obstruction. Having bowel movements. Already on clear liquids. Discussed with general surgery today. As patient has past MBS as noted below, will follow MBS recommendations with placing patient on puree diet with thin liquids. Will continue to monitor. Hopefully home soon. Plan is to return home with at discharge. Patient normally wheelchair-bound. (2) Vomiting: Qualifiers: Nausea presence: with nausea Vomiting Intractability: non-intractable Vomiting type: unspecified Qualified Code(s): R11.2 - Nausea with vomiting, unspecified Code(s): R11.10 - Vomiting, unspecified Status: Acute Assessment and Plan: No further vomiting. MBS done today with recommendation for pureed diet with thin liquids but no spoons. Diet adjusted. Will decrease IV fluids. If oral intake good in next 24 hours, should be able to discontinue IV fluids. Will monitor. (3) Lactic acidosis: Code(s): E87.2 - Acidosis Status: Acute Assessment and Plan: Probably result of dehydration as lactic acidosis improved with IV fluid rehydration. Received IV vancomycin and metronidazole in the emergency room. IV vancomycin discontinued on 08/25/2019 with cultures negative. Continue to monitor. (4) Encephalopathy chronic: Code(s): G93.49 - Other encephalopathy Status: Acute Assessment and Plan: Known chronic encephalopathy. Interaction limited as a result but slightly more responsive today. Will continue to monitor. (5) Hypothyroid: Qualifiers: Hypothyroidism type: unspecified Qualified Code(s): E03.9 - Hypothyroidism, unspecified Code(s): E03.9 - Hypothyroidism, unspecified Status: Acute Assessment and Plan: With advancement of diet, will transition back to oral levothyroxine in a.m.. (6) Parkinsons disease: Code(s): G20 - Parkinson's disease Status: Acute Assessment and Plan: Home carbidopa levodopa has been on hold but will resume with passing MBS. (7) Seizure disorder: Code(s): G40.909 - Epilepsy, unspecified, not intractable, without status epilepticus Status: Acute Assessment and Plan: Oral divalproex has been on hold but will resume with patient passing MBS. No seizure activity. Will monitor. (8) DVT prophylaxis: Code(s): Z29.9 - Encounter for prophylactic measures, unspecified Status: Acute Assessment and Plan: Lovenox. Time Spent With Patient Time with patient: 15 - 25 minutes Subjective Date/time seen: 08/26/19 12:51 Interval history: Date of Service: 08/26/2019. Admitted with partial small bowel obstruction. ROS limited by patient's baseline status. Returned from MBS. No abdominal pain today. No chest pain or shortness of breath. Review of Systems Review of Systems: Narrative: Limited due to patient condition. Constitutional: Constitutional: Denies chills and Denies fever(s) Cardiovascular: Cardiovascular: Denies chest pain Respiratory: Respiratory: Denies dyspnea Gastrointestinal: Gastrointestinal: Reports abdominal pain Exam Narrative: Exam Narrative: Easily awakened Const: General: no acute distress HENMT: Mouth: Yes moist mucous membranes Neck: Neck: supple Lymphatic: lymphadenopathy not noted Resp
[2019-08-26] MEDS: TELMISARTAN 40 MG TABLET 80 MG PO (14:41)
[2019-08-26] MEDS: BACLOFEN 10 MG TABLET 20 MG PO ×2 (14:41→18:21)
[2019-08-26] MEDS: CARBIDOPA/LEVODOPA 25/100 MG TABLET 1 TABLET PO ×2 (14:42→18:22)
[2019-08-26] MEDS: DIVALPROEX SODIUM SPRINKLE 125 MG CAP.DR 375 MG PO ×2 (14:42→18:22)
[2019-08-26] MEDS: SERTRALINE HCL 50 MG TABLET PO (14:42)
[2019-08-26] MEDS: AMLODIPINE BESYLATE 5 MG TABLET PO (14:43)
[2019-08-26] MEDS: modafiniL 100 MG TABLET PO (15:47)
[2019-08-27] VITALS: PULSE 95
[2019-08-27 04:00] VITALS: PULSE 84
[2019-08-27] MEDS: LEVOTHYROXINE SODIUM 88 MCG TABLET PO (05:35)
[2019-08-27] MEDS: SODIUM CHLORIDE 0.9% IV 1,000 ML 75 ML IV CONT (05:40)
[2019-08-27 06:00] VITALS: BP 148/75; PULSE 84; RESP 20; TEMP 36.6; O2SAT 98
[2019-08-27 07:19] LABS: Blood Urea Nitrogen 4 mg/dL (9-20); Calcium 8.3 mg/dL (8.4-10.2); Carbon Dioxide 28 mmol/L (22-30); Chloride 108 mmol/L (98-107); Estimated CRCL calculation 95 ml/min; Estimated Glomerular Filt Rate > 60; Glucose 91 mg/dL (75-110); Magnesium 1.9 mg/dL (1.6-2.3); Potassium 3.3 mmol/L (3.4-5.0); Sodium 140 mmol/L (137-145)
[2019-08-27 08:00] VITALS: PULSE 84
[2019-08-27] MEDS: DIVALPROEX SODIUM SPRINKLE 125 MG CAP.DR 375 MG PO ×2 (09:30→14:05)
[2019-08-27] MEDS: ENOXAPARIN 40 MG/0.4 ML SYRINGE SUB-Q (09:30)
[2019-08-27] MEDS: CARBIDOPA/LEVODOPA 25/100 MG TABLET 1 TABLET PO ×2 (09:30→14:05)
[2019-08-27] MEDS: BACLOFEN 10 MG TABLET 20 MG PO ×2 (09:30→14:05)
[2019-08-27] MEDS: ASPIRIN 81 MG CHEWABLE TABLET PO (09:31)
[2019-08-27] MEDS: modafiniL 100 MG TABLET PO (09:32)
[2019-08-27] MEDS: LORATADINE 10 MG TABLET PO (09:32)
[2019-08-27] MEDS: AMLODIPINE BESYLATE 5 MG TABLET PO (09:32)
[2019-08-27] MEDS: polyethylene glycoL 3350 17 GM POWD.PACK PO (09:32)
[2019-08-27] MEDS: FUROSEMIDE 20 MG TABLET PO (09:32)
[2019-08-27] MEDS: SERTRALINE HCL 50 MG TABLET PO (09:32)
[2019-08-27] MEDS: MULTIVITAMINS /C LUTEIN (CENTRUM SILVER) TABLET *BKC 1 TAB PO (09:32)
[2019-08-27] MEDS: TELMISARTAN 40 MG TABLET 80 MG PO (09:33)
[2019-08-27] MEDS: POTASSIUM CHLORIDE 20 MEQ TABLET 40 MEQ PO (11:08)
--- NOTE | 2019-08-27 11:17 | PM.IMPN ---
Progress Note: A&P Assessment and Plan (1) Partial small bowel obstruction: Code(s): K56.600 - Partial intestinal obstruction, unspecified as to cause Status: Acute Assessment and Plan: General surgery consulted and appreciate input. Unable to place NG tube in emergency room and initially NPO. CT scan on admission with mildly dilated small bowel in left abdomen without focal transition point, which may be adynamic ileus or partial small bowel obstruction and small volume of ascites. KUB on 08/24/2019 with no dilated loops of bowel. Imaging on 08/25/2019 with no free intraperitoneal gas or dilated gas-filled loops of bowel to suggest obstruction. Having bowel movements again today. As patient has past MBS as noted below, will follow MBS recommendations with placing patient on puree diet with thin liquids. On Pureed diet/regular diet; spoon feed thin liquids. Will continue to monitor. Hopefully home soon. Plan is to return home with at discharge. Patient normally wheelchair-bound. (2) Vomiting: Qualifiers: Nausea presence: with nausea Vomiting Intractability: non-intractable Vomiting type: unspecified Qualified Code(s): R11.2 - Nausea with vomiting, unspecified Code(s): R11.10 - Vomiting, unspecified Status: Acute Assessment and Plan: No further vomiting. MBS done during stay with recommendation for pureed diet with thin liquids but no spoons. Diet adjusted. Will d/c IV fluids today. Will monitor. (3) Lactic acidosis: Code(s): E87.2 - Acidosis Status: Acute Assessment and Plan: Probably result of dehydration as lactic acidosis improved with IV fluid rehydration. Received IV vancomycin and metronidazole in the emergency room. IV vancomycin discontinued on 08/25/2019 with cultures negative. Continue to monitor. (4) Encephalopathy chronic: Code(s): G93.49 - Other encephalopathy Status: Acute Assessment and Plan: Known chronic encephalopathy. Interaction limited as a result but slightly more responsive again today. Will continue to monitor. (5) Hypothyroid: Qualifiers: Hypothyroidism type: unspecified Qualified Code(s): E03.9 - Hypothyroidism, unspecified Code(s): E03.9 - Hypothyroidism, unspecified Status: Acute Assessment and Plan: With advancement of diet, will continue oral levothyroxine in a.m.. (6) Parkinsons disease: Code(s): G20 - Parkinson's disease Status: Acute Assessment and Plan: Home carbidopa levodopa had been on hold but has since been resumed with passing MBS. (7) Seizure disorder: Code(s): G40.909 - Epilepsy, unspecified, not intractable, without status epilepticus Status: Acute Assessment and Plan: Oral divalproex had been on hold but has since been resumed with patient passing MBS. No seizure activity. Will monitor. (8) DVT prophylaxis: Code(s): Z29.9 - Encounter for prophylactic measures, unspecified Status: Acute Assessment and Plan: Lovenox. Subjective Date/time seen: 08/27/19 11:17 Interval history: Patient is a 74 yo M here for partial small bowel obstruction. ROS limited by patient's baseline status. No abdominal pain today. No chest pain or shortness of breath. Per nursing, he is more alert/arousable today compared to previous days Review of Systems Review of Systems: ROS unobtainable: Yes unobtainable due to medical condition Exam Narrative: Exam Narrative: Patient lying in semi-quinones's at time of visit; sleeping, but easily awakened Const: General: comfortable and no acute distress HENMT: Mouth: Yes moist mucous membranes Eyes: General: appearance normal, both eyes and all related structures Neck: Neck: trachea midline and supple Resp: Effort & Inspection: normal respiratory effort Auscultation: no rales, no wheezes and diminished lung sounds Cardio: Rate: regular rate Rhythm: regu
--- NOTE | 2019-08-27 11:27 | PM.DS ---
DS: Admitting Diagnosis Admitting Diagnosis Admitting Diagnosis: Partial intestinal obstruction, unspecified as to cause DS: Discharge Diagnosis Discharge Diagnosis (1) Partial small bowel obstruction: Code(s): K56.600 - Partial intestinal obstruction, unspecified as to cause Status: Resolved Assessment and Plan: General surgery consulted and appreciate input. Unable to place NG tube in emergency room and initially NPO. CT scan on admission with mildly dilated small bowel in left abdomen without focal transition point, which may be adynamic ileus or partial small bowel obstruction and small volume of ascites. KUB on 08/24/2019 with no dilated loops of bowel. Imaging on 08/25/2019 with no free intraperitoneal gas or dilated gas-filled loops of bowel to suggest obstruction. Having bowel movements again today. As patient has past MBS as noted below, will follow MBS recommendations with placing patient on puree diet with thin liquids. On Pureed diet/regular diet; spoon feed thin liquids. Will continue to monitor. Hopefully home soon if okay with General Surgery. Plan is to return home with at discharge. Patient normally wheelchair-bound. (2) Vomiting: Qualifiers: Nausea presence: with nausea Vomiting Intractability: non-intractable Vomiting type: unspecified Qualified Code(s): R11.2 - Nausea with vomiting, unspecified Code(s): R11.10 - Vomiting, unspecified Status: Acute Assessment and Plan: No further vomiting. MBS done during stay with recommendation for pureed diet with thin liquids but no spoons. Diet adjusted. Will d/c IV fluids today. Will monitor. (3) Lactic acidosis: Code(s): E87.2 - Acidosis Status: Acute Assessment and Plan: Probably result of dehydration as lactic acidosis improved with IV fluid rehydration. Received IV vancomycin and metronidazole in the emergency room. IV vancomycin discontinued on 08/25/2019 with cultures negative. Continue to monitor. (4) Encephalopathy chronic: Code(s): G93.49 - Other encephalopathy Status: Acute Assessment and Plan: Known chronic encephalopathy. Interaction limited as a result but slightly more responsive again today. Will continue to monitor. (5) Hypothyroid: Qualifiers: Hypothyroidism type: unspecified Qualified Code(s): E03.9 - Hypothyroidism, unspecified Code(s): E03.9 - Hypothyroidism, unspecified Status: Acute Assessment and Plan: With advancement of diet, will continue oral levothyroxine in a.m.. (6) Parkinsons disease: Code(s): G20 - Parkinson's disease Status: Acute Assessment and Plan: Home carbidopa levodopa had been on hold but has since been resumed with passing MBS. (7) Seizure disorder: Code(s): G40.909 - Epilepsy, unspecified, not intractable, without status epilepticus Status: Acute Assessment and Plan: Oral divalproex had been on hold but has since been resumed with patient passing MBS. No seizure activity. Will monitor. (8) DVT prophylaxis: Code(s): Z29.9 - Encounter for prophylactic measures, unspecified Status: Acute Assessment and Plan: Lovenox. 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 While in the ER, patient was noted to have some emesis and aspiration was a concern. He was also found to have imaging results suggestive of partial SBO; ER tried to place an NG tube without success; this was left out per General Surgery instructions. Patient was admitted under the setting of partial SBO. Please see H&P for further details
[2019-08-27 12:00] VITALS: PULSE 83
--- NOTE | 2019-08-27 12:04 | PM.PNGS ---
Progress Note: A&P Assessment and Plan (1) Partial small bowel obstruction: Code(s): K56.600 - Partial intestinal obstruction, unspecified as to cause Status: Resolved Assessment and Plan: No persistent evidence of obstruction. Patient tolerating a pureed diet. Okay to discharge today. Subjective Subjective Date/Time Seen: 08/27/19 12:04 Bowels moving, no complaints of abdominal pain. Exam GI: Inspection: non-distended GI Palp: Yes Soft to palpation and No Tenderness to palpation present (GI) Percussion: Yes normal to percussion Auscultation: normal bowel sounds Objective Data Vital Signs Vital Signs: Vital Signs - 24 hr 08/26/19 14:00 08/26/19 16:00 08/26/19 20:00 Temperature 36.7 C Pulse Rate 100 98 101 H Respiratory Rate 16 Blood Pressure 187/91 H Pulse Oximetry 98 08/26/19 21:24 08/27/19 00:00 08/27/19 04:00 Temperature 36.7 C Pulse Rate 96 95 84 Respiratory Rate 20 Blood Pressure 154/94 H Pulse Oximetry 98 08/27/19 06:00 Temperature 36.6 C Pulse Rate 84 Respiratory Rate 20 Blood Pressure 148/75 H Pulse Oximetry 98 Intake/Output Intake/Output: Intake & Output 08/24/19 08/25/19 08/26/19 08/27/19 23:59 23:59 23:59 23:59 Intake Total 2162 3610 3110 1085 Output Total 800 3650 3500 2150 Balance 1362 -40 -390 -1065 Meds/Results Medications: Active Medications Generic Name Dose Route Start Last Admin Trade Name Freq PRN Reason Stop Dose Admin Albuterol 2.5 mg 08/24/19 06:09 Albuterol Sulf Neb 2.5mg/0.5ml INHALATION Q6H PRN SHORTNESS OF BREATH Amlodipine Besylate 5 mg 08/26/19 12:55 08/27/19 09:32 Norvasc PO 5 mg DAILY THA Administration Artificial Tears 1 drop 08/24/19 09:00 08/27/19 09:30 Artificial Tears EACH EYE 1 drop BID THA Administration Aspirin 81 mg 08/27/19 09:00 08/27/19 09:31 Aspirin Chewable PO 81 mg DAILY THA Administration Baclofen 20 mg 08/26/19 13:00 08/27/19 09:30 Lioresal Po PO 09/25/19 13:01 20 mg TID [facility] Administration Carbidopa/Levodopa 1 tablet 08/26/19 13:00 08/27/19 09:30 Sinemet 25/100 Mg PO 1 tablet TID [facility] Administration Divalproex Sodium 375 mg 08/26/19 13:00 08/27/19 09:30 Depakote Sprinkle PO 375 mg TID [facility] Administration Enoxaparin Sodium 40 mg 08/24/19 09:00 08/27/19 09:30 Lovenox SUB-Q 40 mg DAILY [facility] Administration Furosemide 20 mg 08/27/19 09:00 08/27/19 09:32 Lasix Tablet PO 20 mg QAM [facility] Administration Glycopyrrolate 1 mg 08/26/19 12:52 Robinul Tab PO BID PRN secretions Ipratropium [place] 0.5 mg 08/24/19 06:09 Atrovent Neb INHALATION Q6H PRN SHORTNESS OF BREATH Levothyroxine Sodium 88 mcg 08/27/19 06:30 08/27/19 05:35 Synthroid PO 88 mcg DAILY@0630 [facility] Administration Loratadine 10 mg 08/27/19 09:00 08/27/19 09:32 Claritin PO 09/26/19 09:01 10 mg DAILY [facility] Administration Modafinil 100 mg 08/26/19 12:55 08/27/19 09:32 Provigil PO 09/25/19 12:56 100 mg QAM [facility] Administration Morphine Sulfate 2 mg 08/23/19 17:43 Morphine Sulfate Inj IV PUSH Q2H PRN Pain Rated 7-10 Multivitamins/Minerals 1 tab 08/27/19 09:00 08/27/19 09:32 Centrum Silver PO 1 tab DAILY [facility] Administration Ondansetron HCl 4 mg 08/23/19 17:43 Zofran Inj IV PUSH Q4H PRN Nausea Polyethylene Glycol 17 gm 08/25/19 09:55 08/27/19 09:32 Miralax PO 17 gm QAM [facility] Administration Sertraline HCl 50 mg 08/26/19 12:55 08/27/19 09:32 Zoloft PO 50 mg DAILY [facility] Administration Telmisartan 80 mg 08/26/19 12:55 08/27/19 09:33 Micardis PO 80 mg DAILY [facility]A Administration Tramadol HCl 100 mg 08/26/19 12:54 Ultram PO Q6H PRN moderate pain Radiology Results: ITS Impressions Head CT 08/23/19 15:07 IMPRESSION: 1. Relatively symmetric small bilateral subdural fluid collections on
[2019-08-27 14:36] LABS: H pylori Ag Stool Not Detected (Not Detected)
[2019-08-27 15:15] VITALS: BP 147/81; PULSE 73; RESP 16; TEMP 36.8; O2SAT 99
== END 2019-08-27 16:15 | disposition home or self-care (01) | DRG 389 ==
LOC: ANHED 17:56 → ANH3MEDSUR 18:18
PROVIDERS: Internal Medicine; Nurse Practitioner Family; Surgery; Admitting Provider Hospitalist; Emergency Provider Emergency Medicine; PCP Internal Medicine; Visit Provider Hospitalist
DX: K56.609 Unspecified intestinal obstruction, unspecified as to partial versus complete obstruction (principal); G93.49 Other encephalopathy; G91.2 (Idiopathic) normal pressure hydrocephalus; E87.2 Acidosis; G20 Parkinson's disease; F02.80 Dementia in other diseases classified elsewhere, unspecified severity, without behavioral disturbance, psychotic disturbance, mood disturbance, and anxiety; G40.909 Epilepsy, unspecified, not intractable, without status epilepticus; E03.9 Hypothyroidism, unspecified
CPT/HCPCS: 36415; 70450; 71045; 74019; 74177; 80048; 80053; 80164; 80202; 81001; 83605; 83690; 83735; 85025; 85027; 85055; 87040; 87338; 92611; 96361; 96365; 96375; 99285; A9270; J0696; J1650; J2270; J2405; J3370; J3480; J7030; Q9967

== ENCOUNTER 2020-08-28 16:11 | Outpatient (CLI) | payer MEDICARE, SELFPAY ==
--- NOTE | ~2020-08-28 | US_ITS ---
EXAMINATION:US venous doppler LE RT INDICATION:Right leg swelling and pain TECHNIQUE: Multiple grayscale, color flow and Doppler images of the right lower extremity deep venous systems were obtained and reviewed. COMPARISON:No prior studies for comparison. FINDINGS: The common femoral, superficial femoral and popliteal veins demonstrate normal respiratory variation, augmentation and compressibility. Color flow is also seen within the posterior tibial, pe roneal, greater saphenous and profunda veins. Evaluation of the calf veins limited by soft tissue swe lling. IMPRESSION: 1: No lower extremity deep venous thrombosis. Reviewed, dictated and finalized at location [facility].
== END 2020-08-28 16:12 | disposition home or self-care (01) ==
PROVIDERS: PCP Internal Medicine; Visit Provider Internal Medicine
DX: R60.9 Edema, unspecified (principal)
CPT/HCPCS: 93971

== ENCOUNTER 2021-05-28 13:52 | Outpatient (CLI) | payer MEDICARE, SELFPAY ==
--- NOTE | ~2021-05-28 | US_ITS ---
US arterial ankle brachial ind INDICATION: Peripheral vascular disease TECHNIQUE: Segmental pressures and plethysmographic and Doppler waveforms of the brachial and lower e xtremity arteries were obtained. COMPARISON: None. FINDINGS: Right and left brachial artery pressures of 135 mm Hg and 136 mm Hg, respectively, are concordant (no rmal difference <= 30 mmHg). The right ankle-brachial index (MO) is 1.15 (normal >= 0.9-1.0). The right great toe-brachial index (TBI) is 0.75 (normal >= 0.60). The left MO is 1.23. The left TBI is 1.26. IMPRESSION: 1. Normal ankle-brachial indices. Reviewed, dictated and finalized at [facility]
== END 2021-05-28 13:53 | disposition home or self-care (01) ==
PROVIDERS: PCP Internal Medicine; Visit Provider Internal Medicine
DX: I73.9 Peripheral vascular disease, unspecified (principal)
CPT/HCPCS: 93922

== ENCOUNTER 2022-02-07 13:11 | Inpatient (IN) | payer MEDICARE, SELFPAY ==
[2022-02-07] VITALS (23 sets, daily range): BP systolic 142–192; BP diastolic 72–94; PULSE 82–96; RESP 11–20; TEMP 36.4–36.9; O2SAT 98–100
--- NOTE | ~2022-02-07 | CT_ITS ---
EXAMINATION: CT abdomen pelvis w con DATE: 02/07/2022 16:45 INDICATION: Mucous and blood in the stool TECHNIQUE: Computed tomography (CT) of the abdomen and pelvis was performed with 100 CC Omnipaque 350 intravenous contrast. Automated exposure control and iterative reconstruction technique were employe d. Exam dose: 1216.60 mGy-cm total exam DLP. COMPARISON: 08/23/2019 CT abdomen FINDINGS: There is mild discoid atelectasis or scarring in the dependent lower lobes. Borderline heart size. No pericardial or pleural effusion. Diffuse hepatic steatosis. Several very small hepatic hypoattenuating lesions are likely small cysts or hamartomas. The gallbladder is unremarkable. No bile duct or pancreatic duct dilatation. No pancre atic mass lesion or calcification. Septated approximately 2 cm cystic lesion of the spleen, likely benign. No splenomegaly. Normal morphology of the right adrenal gland. 1.5 x 1.5 cm mass of the left adrenal gland. There is no known malignancy this is most likely an adenoma. Right renal cysts, measuring up to 1.7 cm. Stable approximately 11 x 17 mm hypoenhancing lesion of the posterior mid left kidney, stable since and therefore likely benign or indolent. 5 mm upper pole left renal cyst. No urinary tract calculus or hydroureteronephrosis. The urinary bladder is unremarkable. Right-sided shunt catheter extends into the pelvic area. There is mild free fluid in the pelvis. There is atherosclerotic calcification but normal caliber of the abdominal aorta and iliac and femora l arteries. Status post prostatectomy. There are some nonspecific fluid-containing small bowel segments with air-fluid levels, measuring up to approximately 3 cm maximal diameter in the left lower quadrant with mild adjacent mesenteric fat s oft tissue infiltration. Normal appendix. There is a prominent amount of fecal material in the colon. No bowel obstruction, bowel wall thickeni ng, pneumatosis or intraperitoneal free air. Small fat-containing umbilical hernia. No suspicious osteolytic or osteoblastic lesions. Moderately prominent degenerative disc disease at L3-4 and L5-S1. IMPRESSION: Air-fluid levels and relative mild fluid distention of small bowel in the left lower victorino drant with adjacent mesenteric fat soft tissue infiltration. Consider partial small bowel obstruction , enteritis, mild adynamic ileus. Hepatic steatosis Small probable hepatic cysts or hamartomas Probable benign 2 cm septated cystic splenic lesion 1.5 cm left adrenal mass, stable since 08/23/2019, statistically most likely an adrenal adenoma Status post prostatectomy Ventriculoperitoneal shunt with mild ascites Reviewed, dictated and finalized at [facility]. Reviewed, dictated and finalized at location [facility]. IMPRESSION: Air-fluid levels and relative mild fluid distention of small bowel in the left lower quadrant with adjacent mesenteric fat soft tissue infiltrati on. Consider partial small bowel obstruction, enteritis, mild adynamic ileus. Hepatic steatosis Small probable hepatic cysts or hamartomas Probable benign 2 cm septated cystic splenic lesion 1.5 cm left adrenal mass, stable since 08/23/2019, statistically most likely an adrenal adenoma Status post prostatectomy Ventriculoperitoneal shunt with mild ascites
--- NOTE | 2022-02-07 13:42 | ED.GENADULT ---
HPI - General Adult General Chief complaint: GI Bleed Stated complaint: blood from rectum Time Seen by Provider: 02/07/22 13:32 History of Present Illness HPI narrative: This is a 76-year-old male with a history of meningitis who is nonverbal at baseline presenting with 1 bloody bowel movement. The patient is taken care of by his . She notes that he had a bowel movement that was blood and mucus. She also notes that he is not eating or taking his medications like he normally does. The patient does not interact with the world around him. He cannot provide me any information. Related Data Home Medications Medication Instructions Recorded Confirmed artificial tears(hypromellose) 0.3 1 drp ophthalmic (eye) BID 03/28/19 11/06/21 % eye gel (Systane Gel) modafinil 100 mg tablet (Provigil) 100 mg PO QAM 03/28/19 11/06/21 multivit with minerals-iron 18 1 tablet PO DAILY 03/28/19 11/06/21 mg-folic ac 400 mcg-vit K 25 mcg tablet (Adults Multivitamin) polyethylene glycol 3350 17 17 g PO QPM 03/29/19 11/06/21 gram/dose oral powder (Miralax) aspirin 81 mg chewable tablet 81 mg PO DAILY 08/23/19 11/06/21 cetirizine 10 mg tablet (Zyrtec) 10 mg PO DAILY 08/23/19 11/06/21 sertraline 50 mg tablet (Zoloft) 50 mg PO DAILY 08/23/19 11/06/21 Allergies Allergy/AdvReac Type Severity Reaction Status Date / Time ANMOL Inhibitors Allergy Unknown Confusion Verified 02/07/22 13:12 famotidine Allergy Unknown Confusion Verified 02/07/22 13:12 guaifenesin Allergy Unknown confusing Verified 02/07/22 13:12 pantoprazole Allergy Unknown Confusion Verified 02/07/22 13:12 Penicillins Allergy Unknown Confusion Verified 02/07/22 13:12 promethazine Allergy Unknown Confusion Verified 02/07/22 13:12 ropinirole Allergy Unknown Confusion Verified 02/07/22 13:12 Review of Systems Review of Systems: unable to obtain as the patient cannot speak PMFSH Past Medical History Medical History Abnormal colonoscopy Sigmoid colitis and internal hemorrhoids on colonoscopy March [address] 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 with flexion contractures, immobility and nonverbal state Meningitis Muscle spasticity Normal pressure hydrocephalus NPH (normal pressure hydrocephalus) Parkinsons disease With atypical features Primary osteoarthritis of both knees Primary osteoarthritis of knees, bilateral Prostate cancer Seizure disorder Vitamin D deficiency Surgical History Surgical History History of bilateral cataract extraction 2014 History of hemorrhoidectomy 1977 History of prostatectomy 1992 History of thyroid surgery Resection of a thyroid nodule 2011 Status post ventriculoperitoneal shunt April 2015 Family History Family History Father Malignant neoplasm of prostate Mother Diabetes mellitus Sibling Hypertension Cancer Social History Social History Social History: Primary care physician: Dr. Homer Dowell Code status: DNI Smoking status: Never smoker Smoking end date: 03/28/00 Alcohol intake: never Alcohol use details: occasional Substance use: never Additional living arrangements comments: The patient lives in [place] with his who is his primary caregiver. Gender identity (if verbalized by the patient): Male Spiritual care concerns: No Agree to blood products: No Exam Narrative: APPEARANCE: No apparent distress. patient is sitting in bed not responsive. Head is turned to the right with rightward gaze deviati
[2022-02-07 15:22] LABS: Glucose Point of Care 91 mg/dl (65-105)
[2022-02-07 15:40] LABS: Basophils Percent Auto 0.3 % (0.2-1.2); Eosinophils Absolute Auto 0.1 K/mm3 (0-0.3); Eosinophils Percent Auto 0.9 % (0-4.4); Hematocrit 47.9 % (42.0-52.0); Hemoglobin 15.7 g/dL (14.0-18.0); Immature Granulocyte Absolute 0.04 K/mm3 (0.00-0.031); Immature Granulocyte Percent A 0.5 % (0-0.5); Lymphocytes Absolute Auto 1.68 K/mm3 (0.9-3.2); Lymphocytes Percent Auto 22.4 % (18.3-44.2); Mean Corpuscular HGB Conc 32.8 g/dl (32-36); Mean Corpuscular Volume 94.5 fl (80-100); Mean Platelet Volume 9.8 fl (7.4-10.4); Monocytes Absolute Auto 0.7 K/mm3 (0.1-0.6); Monocytes Percent Auto 9.9 % (2.6-8.5); Platelet Count Result 199 k/mm3 (150-375); Red Blood Count 5.07 M/mm3 (4.6-6.20); Red Cell Distribution Width 14.1 % (11.5-14.5); White Blood Count 7.5 K/mm3 (4.5-10.0)
[2022-02-07 15:53] LABS: Prothrombin Time 13.2 Seconds (11.1-14.7)
[2022-02-07 15:54] LABS: Partial Thromboplastin Time 37.7 SECONDS (22.3-36.8)
[2022-02-07 15:57] LABS: Alanine Aminotransferase 19 U/L (6-50); Albumin Level 4.3 g/dL (3.5-5.1); Alkaline Phosphatase 70 U/L (38-126); Anion Gap 13 mmol/L (8-16); Aspartate Amino Transferase 30 U/L (17-59); Bilirubin,Total 0.8 mg/dL (0.2-1.3); Blood Urea Nitrogen 15 mg/dL (9-20); Carbon Dioxide 28 mmol/L (22-30); Chloride 102 mmol/L (98-107); Estimated CRCL calculation 92 ml/min; Estimated Glomerular Filt Rate > 60; Glucose 99 mg/dL (65-110); Potassium 4.2 mmol/L (3.4-5.0); Sodium 143 mmol/L (137-145)
[2022-02-07 18:33] LABS: Appearance Urine Slightly Cloudy (Clear); Bilirubin Urine Negative (Negative); Blood Urine 1+ (Negative); Color Urine Yellow (Yellow); Glucose Urine UA Negative (Negative); Ketones Urine Negative (Negative); Leukocyte Esterase Ur 1+ LEU/UL (Negative); Nitrate Urine Negative (Negative); Protein Urine Negative (Negative); Urobilinogen Urine 0.2 mg/dL (<2.0); pH Urine 5.5 (5.0-9.0)
[2022-02-07 18:35] LABS: Bacteria Urine Trace /hpf; WBC Urine 16-20 /hpf
[2022-02-07 18:36] LABS: Add Urine Microscopic? YES
[2022-02-07] MEDS: LACTATED RINGERS 1,000 ML 125 ML IV CONT (19:30)
[2022-02-07 20:14] LABS: SARS-CoV-2 RNA PCR Negative
--- NOTE | 2022-02-07 20:30 | PM.IMHP ---
H&P: HPI History of Present Illness Date/Time: 02/07/22 20:30 Chief Complaint: blood per rectum Narrative: this is a 76-year-old male with past medical history significant for persistent a vegetative state he has a ventricular peritoneal shunt, Parkinson's disease, his taking care at home by his who noticed a bloody bowel movement patient is unable to give any history and is brought for further evaluation management and treatment. A CT of abdomen and pelvis was reported as: IMPRESSION:? Air-fluid levels and relative mild fluid distention of small bowel in the left lower quadrant with adjacent mesenteric fat soft tissue infiltration. Consider partial small bowel obstruction, enteritis, mild adynamic ileus. Hepatic steatosis Small probable hepatic cysts or hamartomas Probable benign 2 cm septated cystic splenic lesion 1.5 cm left adrenal mass, stable since 08/23/2019, statistically most likely an adrenal adenoma Status post prostatectomy Ventriculoperitoneal shunt with mild ascites Review of Systems Review of Systems: ROS unobtainable: Yes unobtainable due to medical condition ( persistent vegetative stage) [facility] Past Medical History Medical History (Updated 02/08/22 @ 03:26 by Ubaldo García MD) Abnormal colonoscopy Sigmoid colitis and internal hemorrhoids on colonoscopy March [address] 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 with flexion contractures, immobility and nonverbal state Meningitis Muscle spasticity Normal pressure hydrocephalus NPH (normal pressure hydrocephalus) Parkinsons disease With atypical features Primary osteoarthritis of both knees Primary osteoarthritis of knees, bilateral Prostate cancer Seizure disorder Vitamin D deficiency Surgical History Surgical History History of bilateral cataract extraction 2014 History of hemorrhoidectomy 1977 History of prostatectomy 1992 History of thyroid surgery Resection of a thyroid nodule 2011 Status post ventriculoperitoneal shunt April 2015 Family History Family History Father Malignant neoplasm of prostate Mother Diabetes mellitus Sibling Hypertension Cancer Social History Social History Social History: Primary care physician: Dr. Homer Dowell Code status: DNI Smoking packs per day: 0.25 Smoking cigarettes per day: 5.0 Years smoked: 20 Smoking pack-years: 5.00 Smoking status: Former smoker Tobacco type: cigarettes Smoking end date: 03/28/00 Alcohol intake: never Alcohol use details: occasional Substance use: never Additional living arrangements comments: The patient lives in [place] with his who is his primary caregiver. Gender identity (if verbalized by the patient): Male Spiritual care concerns: No Agree to blood products: No Meds Home Medications and Allergies Home Medications Medication Instructions Recorded Confirmed Type artificial tears(hypromellose) 0.3 1 drp ophthalmic (eye) BID 03/28/19 02/07/22 History % eye gel (Systane Gel) modafinil 100 mg tablet (Provigil) 100 mg PO QAM 03/28/19 02/07/22 History multivit with minerals-iron 18 1 tablet PO DAILY 03/28/19 02/07/22 History mg-folic ac 400 mcg-vit K 25 mcg tablet (Adults Multivitamin) polyethylene glycol 3350 17 17 g PO QPM 03/29/19 02/07/22 History gram/dose oral powder (Miralax) aspirin 81 mg chewable tablet 81 mg PO DAILY 08/23/19 02/07/22 History cetirizine 10 mg tablet (Zyrtec) 10 mg PO DAILY 08/23/19 02/07/22 History sertraline 50 mg tablet (Zoloft) 50 mg PO DAILY 0
--- NOTE | 2022-02-07 22:28 | ADMGEN ---
This patient, Lane Helms, was admitted to [facility] Surg Room 302-01. Patient/family oriented to hospital policies and general routines including ID bracelet, bed and alarms, visiting hours, pain management, procedures, bathroom and other care routines, personal items, smoking policy, room service/diet, and visiting hours. Information on how to activate the Rapid Response Team has been discussed. Patient/Family are encouraged to report perceived risks to care and to ask questions if they do not understand what they are told or what they should do.
[2022-02-08 06:00] VITALS: BP 177/93; PULSE 107; RESP 18; TEMP 36.4; O2SAT 96
[2022-02-08] MEDS: LACTATED RINGERS 1,000 ML 125 ML IV CONT (06:35)
--- NOTE | 2022-02-08 10:02 | WPDGICN ---
Assessment and Plan Assessment and plan (1) Rectal bleeding: Code(s): K62.5 - Hemorrhage of anus and rectum Status: Acute Assessment and Plan: Rectal bleeding if appears to have occurred on 1 bowel movement described as blood in the mucus but not in the stool. No additional bleeding noted since hospitalization. Because of the prompt resolution of rectal bleeding I suspect this is hemorrhoidal in nature. Patient does have a history of nonspecific colitis 2 years ago presumably from an infectious etiology. I would recommend conservative management with stool softeners and laxatives at this point. No evidence of bowel obstruction at this point. (2) Abnormal CT scan: Code(s): R93.89 - Abnormal findings on diagnostic imaging of other specified body structures Status: Acute Assessment and Plan: CT scan raised the question of air-fluid levels. Patient has no clinical signs of obstruction nor from ileus. Bowel sounds are present and active. Patient continues to have bowel movements described as normal by the nursing staff. Recommend stool softeners and laxatives per possible tendency towards constipation with his bedridden state. (3) Acute UTI: Code(s): N39.0 - Urinary tract infection, site not specified Status: Acute Assessment and Plan: UTI identified by urinalysis. Treatment per primary care service. (4) Parkinsons disease: Code(s): G20 - Parkinson's disease Status: Acute (5) Encephalopathy chronic: Code(s): G93.49 - Other encephalopathy Status: Acute GI Consult Note Consult date/time: 02/08/22 10:02 Reason for consult: Question about partial small-bowel obstruction HPI: Lane Helms is a 76 year old male I am asked to see at the request of the hospitalist service. Patient in a persistent vegetative state. He is nonverbal bed ridden cared for at home by his family. Patient noticed a small amount of bright red blood last evening prompting him to come to the hospital for admission. In the ER a CT scan suggested air-fluid levels. Nursing staff reports the patient has continued to have bowel movements in the bowel movements while hospitalized revealed no evidence of blood. Patient does have a past medical history of Parkinson's disease. He has a ventricular peritoneal shunt. He is unable to give any additional history. Patient underwent a flex sig 2 years ago that revealed a small amount of sigmoid colitis at that time attributed an infection. no evidence of inflammation by CT scanning on this admission. Review of Systems Review of Systems: ROS unobtainable: Yes unobtainable due to medical condition PMFSH Past Medical History Medical History (Updated 02/08/22 @ 10:05 by Fritz Marvin MD) Abnormal colonoscopy Sigmoid colitis and internal hemorrhoids on colonoscopy March [address] 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 with flexion contractures, immobility and nonverbal state Meningitis Muscle spasticity Normal pressure hydrocephalus NPH (normal pressure hydrocephalus) Parkinsons disease With atypical features Primary osteoarthritis of both knees Primary osteoarthritis of knees, bilateral Prostate cancer Seizure disorder Vitamin D deficiency Surgical History Surgical History History of bilateral cataract extraction 2014 History of hemorrhoidectomy 1978 History of prostatectomy 1992 History of thyroid surgery Resection of a thyroid nodule 2011 Status post ventriculoperitoneal shunt April 2015 Family History Family History Father Emmanuel
--- NOTE | 2022-02-08 10:07 | PC.NURSE ---
Pt's , Lillian, called to inform me that she had forgotten to mention that pt cannot swallow whole pills. She stated that she crushes pt's meds and feeds them to him in applesauce and he is able to swallow them that way.
[2022-02-08] MEDS: polyethylene glycoL 3350 17 GM POWD.PACK PO (12:03)
[2022-02-08 14:00] VITALS: BP 174/92; PULSE 101; RESP 16; TEMP 36.3; O2SAT 98
[2022-02-08 14:47] LABS: Hematocrit 46.9 % (42.0-52.0); Hemoglobin 15.4 g/dL (14.0-18.0); Mean Corpuscular HGB Conc 32.8 g/dl (32-36); Mean Corpuscular Hemoglobin 30.7 pg (26-34); Mean Corpuscular Volume 93.6 fl (80-100); Mean Platelet Volume 9.1 fl (7.4-10.4); Platelet Count Result 192 k/mm3 (150-375); Red Blood Count 5.01 M/mm3 (4.6-6.20); Red Cell Distribution Width 13.7 % (11.5-14.5); White Blood Count 7.8 K/mm3 (4.5-10.0)
--- NOTE | 2022-02-08 15:00 | PM.DS ---
DS: Admitting Diagnosis Discharge Date 02/08/22 Admitting Diagnosis (1) Partial bowel obstruction: ?Code(s): K56.600 - Partial intestinal obstruction, unspecified as to cause ?Status:?Acute ? ? (2) Prostate cancer: ?Code(s): C61 - Malignant neoplasm of prostate ?Status:?Acute (3) Seizure disorder: ?Code(s): G40.909 - Epilepsy, unspecified, not intractable, without status epilepticus ?Status:?Acute ? ? (4) Parkinsons disease: ?Code(s): G20 - Parkinson's disease ?Status:?Acute ? (5) Encephalopathy chronic: ?Code(s): G93.49 - Other encephalopathy ?Status:?Acute ? DS: Discharge Diagnosis Discharge Diagnosis (1) Rectal bleeding: Code(s): K62.5 - Hemorrhage of anus and rectum Status: Acute (2) Infection of ventriculoperitoneal shunt: Code(s): T85.730A - Infection and inflammatory reaction due to ventricular intracranial (communicating) shunt, initial encounter Status: Acute (3) Acute UTI: Code(s): N39.0 - Urinary tract infection, site not specified Status: Acute (4) Therapeutic drug monitoring: Code(s): Z51.81 - Encounter for therapeutic drug level monitoring Status: Acute (5) Neurogenic bladder: Code(s): N31.9 - Neuromuscular dysfunction of bladder, unspecified Status: Acute (6) Benign essential hypertension: Code(s): I10 - Essential (primary) hypertension Status: Acute (7) Parkinsons disease: Code(s): G20 - Parkinson's disease Status: Acute (8) Seizure disorder: Code(s): G40.909 - Epilepsy, unspecified, not intractable, without status epilepticus Status: Acute (9) Hyperlipidemia: Code(s): E78.5 - Hyperlipidemia, unspecified Status: Acute DS: Summary Hospital Course Reason for hospitalization: ?blood per rectum Narrative: ?this is a 76-year-old male with past medical history significant for persistent a vegetative state? he has a ventricular peritoneal shunt,? Parkinson's disease, his taking care at home by his who noticed a bloody bowel movement patient is unable to give any history and is brought for further evaluation management and treatment.? A CT of abdomen and pelvis was? reported as: IMPRESSION:? Air-fluid levels and relative mild fluid distention of small bowel in the left lower quadrant with adjacent mesenteric fat soft tissue infiltration. Consider partial small bowel obstruction, enteritis, mild adynamic ileus. Hepatic steatosis Small probable hepatic cysts or hamartomas Probable benign 2 cm septated cystic splenic lesion 1.5 cm left adrenal mass, stable since 08/23/2019, statistically most likely an adrenal adenoma Status post prostatectomy Ventriculoperitoneal shunt with mild ascites Hospital Course: patient admitted with complaint of bright red blood per rectum as explained by spouse at time of admission. This patient is well-known to Dr. Marvin and he has been consulted during this hospitalization. His hemoglobin has remained stable during this hospitalization without any further bleeding noted by hospital staff, and he is diagnosed with hemorrhoidal bleeding and constipation. He is discharged back to care of spouse on MiraLax bowel regimen. partial small-bowel obstruction has been ruled out as patient is having bowel movement. Status at Discharge Functional status at discharge: bed bound Time Spent with Patient Time attestation: Total time spent providing and/or coordinating discharge services: Exam Narrative: Exam Const opens eyes to voice cooperative HEENT: EOMI, poor dental hygiene Lungs: symmetric chest rise no distress Extrem: decreased range of motion Psych: unable to evaluate DS: Data Data Completed and Pending Labs on day of discharge: Labs from last 24 hours 02/08/22 02/07/22 02/07/22 14:40 19:33 18:24 WBC 7.8 RBC 5.01 Hgb 15.4 Hct 46.9 MCV 93.6 MCH 30.7 MCHC
[2022-02-08 16:54] VITALS: O2SAT 98
== END 2022-02-08 17:58 | disposition home or self-care (01) | DRG 394 ==
LOC: ANHED 19:05 → ANH3MEDSUR 20:35
PROVIDERS: Admitting Provider Hospitalist; Emergency Provider Emergency Medicine; PCP Internal Medicine; Visit Provider Hospitalist
DX: K64.9 Unspecified hemorrhoids (principal); G91.2 (Idiopathic) normal pressure hydrocephalus; G93.49 Other encephalopathy; N39.0 Urinary tract infection, site not specified; B96.20 Unspecified Escherichia coli [E. coli] as the cause of diseases classified elsewhere; B96.1 Klebsiella pneumoniae [K. pneumoniae] as the cause of diseases classified elsewhere; K59.00 Constipation, unspecified; C61 Malignant neoplasm of prostate; G40.909 Epilepsy, unspecified, not intractable, without status epilepticus; G20 Parkinson's disease; F02.80 Dementia in other diseases classified elsewhere, unspecified severity, without behavioral disturbance, psychotic disturbance, mood disturbance, and anxiety; N31.9 Neuromuscular dysfunction of bladder, unspecified; I10 Essential (primary) hypertension; E78.5 Hyperlipidemia, unspecified; E89.0 Postprocedural hypothyroidism; E55.9 Vitamin D deficiency, unspecified; R93.89 Abnormal findings on diagnostic imaging of other specified body structures; Z20.822 Contact with and (suspected) exposure to COVID-19; Z79.82 Long term (current) use of aspirin; Z79.899 Other long term (current) drug therapy; Z86.16 Personal history of COVID-19; Z86.61 Personal history of infections of the central nervous system; Z98.2 Presence of cerebrospinal fluid drainage device; Z90.79 Acquired absence of other genital organ(s); Z98.42 Cataract extraction status, left eye; Z98.41 Cataract extraction status, right eye; Z74.01 Bed confinement status
CPT/HCPCS: 36415; 51701; 74177; 80053; 81001; 82948; 83735; 85025; 85027; 85610; 85730; 87077; 87086; 87186; 96365; 99285; A9270; J0696; J7120; Q9967; U0003; U0005